=== PATIENT | female | born 1970 | race Two or more races ===

== ENCOUNTER 2023-03-12 14:06 | Emergency (ER) | payer BC, SELFPAY ==
[2023-03-12 14:16] VITALS: BP 140/78; PULSE 76; RESP 18; TEMP 36.7; O2SAT 99; BMI 36.8
--- NOTE | 2023-03-12 14:30 | ED.ABDPAIN1 ---
HPI - Abdominal Pain General Chief Complaint: Abdominal Pain Stated Complaint: FLANK PAIN Time Seen by Provider: 03/12/23 14:09 History of Present Illness HPI narrative: patient is a 52-year-old female who presents to the emergency department for pain in the right flank for the last three days. She states one year ago she had surgery on her left kidney was told at that time that she had a kidney stone in her right kidney. She states she was told that she should follow up for surgery to remove the kidney stone but she never did. She reports pain to the right flank radiating into the right abdomen for three days associated with nausea and vomiting. She denies fevers. She states she had blood in her urine at the beginning of the course of her illness. She denies any dysuria. No medications taken prior to arrival. Patient is Ugandan-speaking and history and physical were obtained with use of [place]an electrocardiographic technician. Related Data Previous Rx's Medication Instructions Recorded cephalexin 500 mg capsule 500 mg PO Q8H 7 days #21 caps 03/12/23 ketorolac 10 mg tablet 10 mg PO TID PRN pain #10 tabs 03/12/23 ondansetron 4 mg disintegrating 4 mg PO Q6H PRN nausea and 03/12/23 tablet vomiting #12 tabs oxycodone-acetaminophen 5 mg-325 1 tab PO Q6H PRN pain #15 tabs 03/12/23 mg tablet (Percocet) tamsulosin 0.4 mg capsule (Flomax) 0.4 mg PO DAILY #7 caps 03/12/23 Allergies Allergy/AdvReac Type Severity Reaction Status Date / Time No Known Drug Allergies Allergy Verified 03/12/23 14:41 Review of Systems ROS Constitutional Denies: fever or chills Ears, nose, mouth, and throat Denies: throat pain Cardiovascular Denies: chest pain Respiratory Denies: shortness of breath or cough Gastrointestinal Reports: abdominal pain, nausea and vomiting Genitourinary Reports: blood in urine Musculoskeletal Reports: back pain Integumentary/Breast Denies: rash Neurological Denies: headache PFSH PFSH Social History Smoking status: Never smoker Exam Narrative Exam Narrative: Gen.: Awake, alert, in no distress Head: Normocephalic, atraumatic ENT: Moist mucous membranes Respiratory: No respiratory distress Gastrointestinal: Abdomen is soft, nondistended and nontender to palpation Back: no rashes or color change noted of the right flank, no CVA tenderness Extremities: Moves extremities equally Psych: Normal mood and affect Neuro: No focal neuro deficit Skin: Warm, dry, intact Constitutional Vital Signs, click to edit/add: Last Vital Signs Temp 98.0 F 03/12/23 14:16 Pulse 76 03/12/23 14:16 Resp 18 03/12/23 14:16 BP 140/78 03/12/23 14:16 Pulse Ox 99 03/12/23 14:16 O2 Del Method Room Air 03/12/23 14:16 Course Vital Signs Vital signs: Vital Signs Temperature 98.0 F 03/12/23 14:16 Pulse Rate 76 03/12/23 14:16 Respiratory Rate 18 03/12/23 14:16 Blood Pressure 140/78 03/12/23 14:16 Pulse Oximetry 99 03/12/23 14:16 Oxygen Delivery Method Room Air 03/12/23 14:16 Temperature 98.0 F 03/12/23 14:16 Pulse Rate 76 03/12/23 14:16 Respiratory Rate 18 03/12/23 14:16 Blood Pressure 140/78 03/12/23 14:16 Pulse Oximetry 99 03/12/23 14:16 Oxygen Delivery Method Room Air 03/12/23 14:16 MDM - Abdominal Pain MDM Narrative Medical decision making narrative: patient treated with IV fluids, Toradol, Zofran, Dilaudid with improvement. She was given additional morphine for pain control. Lab studies show normal white blood cell count, normal lactic acid and normal creatinine. Patient has a nitrite positive urinary tract infection which was treated with IV Rocephin in the Emergency Room. CT of the abdomen and pelvis without contrast shows the patient has a 7 mm stone at the right UPJ with hydronephrosis as well as a left renal pelvis stone. I discussed the case with Dr. Ruiz for urology ([id number]) who recommended outpatient management, he will see the patient in the [place] office tomorrow for further evaluation and treatment. Patient will be discharged home on Percocet, Flomax, Zofran, Toradol, Keflex. Return to the emergency department if symptoms change or worsen. Follow-up with urology tomorrow. Medical Records Attestation: I reviewed the patient's medical records. Lab Data Attestation: I reviewed the patient's lab results. Labs: Lab Results 03/12/23 03/12/23 Range/Units 14:25 14:43 WBC 7.8 (4.0-11.0) 10^3/uL RBC 4.77 (4.20-5.40) 10^6/uL Hgb 12.8 (12.0-16.0) g/dL Hct 39.7 (36.0-48.0) % MCV 83.2 (81.0-99.0) fL MCH 26.8 (26.7-34.0) pg MCHC 32.2 (29.9-35.2) g/dL RDW 14.1 (11.0-15.0) % Plt Count 354 (150-450) 10^3/uL MPV 9.2 L (9.5-13.5) fL Neut % (Auto) 76.4 H (43.0-75.0) % Lymph % (Auto) 15.0 L (20.5-60.0) % [place] % (Auto) 5.7 (1.7-12.0) % Eos % (Auto) 2.2 (0.9-7.0) % Baso % (Auto) 0.4 (0.2-2.0) % Neut # (Auto) 5.9 (1.4-6.5) 10^3/uL Lymph # (Auto) 1.2 (1.2-3.8) 10^3/uL [place] # (Auto) 0.4 (0.3-0.8) 10^3/uL Eos # (Auto) 0.2 (0.0-0.7) 10^3/uL Baso # (Auto) 0.0 (0.0-0.1) 10^3/uL Abs Immat Gran (auto) 0.02 (0.00-0.03) 10^3/uL Imm/Tot Granulo (auto) 0.3 (0.0-0.5) % Sodium 139 (136-145) mmol/L Potassium 3.6 (3.5-5.1) mmol/L Chloride 107 (98-107) mmol/L Carbon Dioxide 26.7 (21.0-32.0) mmol/L Anion Gap 8.9 BUN 12.0 (7.0-18.0) mg/dL Creatinine 0.78 (0.55-1.02) mg/dL Est GFR ( Amer) >60 (>=60) Est GFR (Non-Af Amer) >60 (>=60) BUN/Creatinine Ratio 15.4 Glucose 109 H (74-106) mg/dL Lactate 1.1 (0.4-2.0) mmol/L Calcium 10.8 H (8.5-10.1) mg/dL Total Bilirubin 0.3 (0.2-1.0) mg/dL AST 19 (15-37) U/L ALT 28 (14-59) U/L Alkaline Phosphatase 161 H (46-116) U/L Total Protein 7.8 (6.4-8.2) g/dL Albumin 4.0 (3.4-5.0) g/dL Globulin 3.8 g/dL Albumin/Globulin Ratio 1.1 Urine Color Lt. yellow (YELLOW) Urine Clarity Clear (CLEAR) Urine pH 7.0 (5.0-9.0) Ur Specific [place] 1.020 (1.005-1.025) Urine Protein 30 A (NEG/TRACE) mg/dL Urine Glucose (UA) Negative (NEGATIVE) mg/dL Urine Ketones Negative (NEGATIVE) mg/dL Urine Occult Blood Large A (NEGATIVE) Urine Nitrite Positive A (NEGATIVE) Urine Bilirubin Negative (NEGATIVE) Urine Urobilinogen 0.2 (0.2-1.0) EU/dL Ur Leukocyte Esterase Large A (NEGATIVE) Urine RBC 10-20 A (0-2) #/HPF Urine WBC 20-50 A (NONE SEEN) #/HPF Ur Squamous Epith Cells Moderate A (NONE/RARE) #/LPF Urine Crystals Not Reportable Urine Bacteria Large A (NONE SEEN) #/HPF Urine Casts Not Reportable Urine Mucus None seen (NONE SEEN) Ur Culture Indicated? Yes Imaging Data CT scan - abdomen: Attestation: I have reviewed the pertinent imaging results. Radiologist's impression: Procedure: CT abdomen pelvis wo con EXAM: CT abdomen pelvis wo con; [id number] REASON FOR EXAM: Kidney stone TECHNIQUE: Helical CT images of the abdomen and pelvis were obtained without IV contrast. Multiplanar reformats were generated at the scanner. Dose reduction technique used: Automated exposure control and/or adjustment of the mA and/or kV according to patient size and/or use of iterative reconstruction technique. COMPARISON: CT abdomen/pelvis 09/27/2011. FINDINGS: Note: Compared with a contrast-enhanced CT exam, noncontrast images are relatively insensitive for detection of solid organ and vascular abnormalities. Visualized Chest: No pleural effusion or any significant pulmonary findings. Abdomen: Liver: -Cyst along the lateral periphery of the left lobe liver measures 7.8 x 6 cm (series 3 image 28), previously 3.4 x 2.4 cm in 2012. There is a small focal outpouching in the wall of the cyst into the hepatic parenchyma which measures 12 mm. Gallbladder: No calcified gallstones. No acute inflammatory changes. Bile Ducts: No significant biliary ductal dilatation. Pancreas: No ductal dilatation or inflammatory changes. Spleen: No splenomegaly. Adrenals: No nodules. Kidneys: -Obstructing stone in the right ureteropelvic junction measuring 7 x 7 mm (series 3 image 70) results in mild right-sided hydronephrosis. -Large renal pelvis stone in the left kidney measuring 2.4 x 1.9 x 1.2 cm, moderately increased in size compared with 2012. There is mild/moderate left-sided hydronephrosis as well as moderate parenchymal atrophy of the lower pole of the left kidney, worse. -Small parenchymal calcification in the lateral aspect of the lower pole of the left kidney. -Additional nonobstructing 2-3 mm stone in the right kidney. Vascular: No aortic aneurysm. Lymph Nodes: No adenopathy. Abdominal Wall: No hernia or mass. Pelvis: No mass or adenopathy. Bowel/Peritoneal Cavity/Mesentery: -No bowel obstruction or significant ileus. -No acute inflammatory changes. -No free air or free fluid. Musculoskeletal: No acute fracture or suspicious osseous lesion. Bilateral pars defects at L5. No significant spondylolisthesis. IMPRESSION: 1. Obstructing 7 mm stone in the right ureteropelvic junction resulting in mild right-sided hydronephrosis. 2. Large obstructing left renal pelvis stone measuring up to 24 mm and resulting in mild/moderate hydronephrosis of the upper pole of the left kidney. 3. Additional small nonobstructing stone in the right kidney. 4. Enlarging liver cyst with small focal outpouching which now measures up to 7.8 cm (previously 3.4 cm). This could represent a benign enlarging liver cyst, however, a hydatid cyst could have a similar appearance. Consider nonemergent MRI of the liver with and without contrast for further evaluation. Electronically authenticated by: NILSA DE GUZMAN Date: 03/12/2023 15:44 Discharge Plan Discharge Chief Complaint: Abdominal Pain Clinical Impression: Kidney stone Patient Disposition: Home, Self-Care Time of Disposition Decision: 16:34 Condition: Good Prescriptions / Home Meds: New cephalexin 500 mg capsule 500 mg PO Q8H 7 Days Qty: 21 0RF tamsulosin [Flomax] 0.4 mg capsule 0.4 mg PO DAILY Qty: 7 0RF ketorolac 10 mg tablet 10 mg PO TID PRN (Reason: pain) Qty: 10 0RF oxycodone-acetaminophen [Percocet] 5-325 mg tablet 1 tab PO Q6H PRN (Reason: pain) Qty: 15 0RF Rx Instructions: DX: N20.0 ondansetron 4 mg tablet,disintegrating 4 mg PO Q6H PRN (Reason: nausea and vomiting) Qty: 12 0RF Print Language: Ugandan Instructions: Kidney Stones (ED) Additional Instructions: Call Dr. Ruiz office tomorrow morning for appointment: [phone] Stand Alone Forms: Portal Instructions Referrals: Physician,Non-Staff, MD [Primary Care Provider] - 1 week
[2023-03-12] MEDS: HYDROMORPHONE HCL 1 MG/ML CARTRIDGE 0.5 MG IVP (14:47)
[2023-03-12] MEDS: ONDANSETRON PF 4 MG/2 ML VIAL IV (14:47)
[2023-03-12] MEDS: 0.9 % SODIUM CHLORIDE 1,000 ML 999 ML IV (14:48)
[2023-03-12 14:53] LABS: Basophils Percent Auto 0.4 % (0.2-2.0); Eosinophils Absolute Auto 0.2 10^3/uL (0.0-0.7); Eosinophils Percent Auto 2.2 % (0.9-7.0); Hematocrit 39.7 % (36.0-48.0); Hemoglobin 12.8 g/dL (12.0-16.0); Immature Granulocytes Abs Auto 0.02 10^3/uL (0.00-0.03); Immature Granulocytes Pct Auto 0.3 % (0.0-0.5); Lymphocytes Absolute Auto 1.2 10^3/uL (1.2-3.8); Mean Corpuscular HGB Conc 32.2 g/dL (29.9-35.2); Mean Corpuscular Hemoglobin 26.8 pg (26.7-34.0); Mean Corpuscular Volume 83.2 fL (81.0-99.0); Mean Platelet Volume 9.2 fL (9.5-13.5); Monocytes Absolute Auto 0.4 10^3/uL (0.3-0.8); Monocytes Percent Auto 5.7 % (1.7-12.0); Neutrophils Absolute Auto 5.9 10^3/uL (1.4-6.5); Neutrophils Percent Auto 76.4 % (43.0-75.0); Platelet Count 354 10^3/uL (150-450); Red Blood Count 4.77 10^6/uL (4.20-5.40); Red Cell Distribution Width 14.1 % (11.0-15.0); White Blood Count 7.8 10^3/uL (4.0-11.0)
[2023-03-12 14:54] LABS: Bilirubin Urine NEGATIVE (NEGATIVE); Blood Urine LARGE (NEGATIVE); Clarity Urine CLEAR (CLEAR); Color Urine LT. YELLOW (YELLOW); Glucose Urine UA NEGATIVE (NEGATIVE); Ketones Urine NEGATIVE (NEGATIVE); Leukocyte Esterase Urine LARGE (NEGATIVE); Nitrite Urine POSITIVE (NEGATIVE); Protein Urine 30 mg/dL (NEG/TRACE); Urobilinogen Urine 0.2 EU/dL (0.2-1.0)
[2023-03-12] MEDS: KETOROLAC TROMETHAMINE 30 MG/ML VIAL IVP (14:54)
[2023-03-12 14:55] LABS: Urine Microscopic Indicated YES
[2023-03-12 15:06] LABS: Alanine Aminotransferase 28 U/L (14-59); Albumin Globulin Ratio 1.1; Alkaline Phosphatase 161 U/L (46-116); Anion Gap 8.9; Aspartate Amino Transferase 19 U/L (15-37); BUN Creatinine Ratio 15.4; Bilirubin Total 0.3 mg/dL (0.2-1.0); Calcium 10.8 mg/dL (8.5-10.1); Carbon Dioxide 26.7 mmol/L (21.0-32.0); Chloride 107 mmol/L (98-107); Estimated GFR (African America >60 (>=60); Estimated GFR (Non-African Ame >60 (>=60); Globulin 3.8 g/dL; Glucose 109 mg/dL (74-106); Potassium 3.6 mmol/L (3.5-5.1); Sodium 139 mmol/L (136-145); Total Protein 7.8 g/dL (6.4-8.2)
[2023-03-12 15:07] LABS: WBC Urine 20-50 #/HPF (NONE SEEN)
[2023-03-12 15:08] LABS: Bacteria Urine LARGE #/HPF (NONE SEEN); Mucus Urine NONE SEEN (NONE SEEN); Squamous Epithelial Cell Urine MODERATE #/LPF (NONE/RARE)
[2023-03-12 15:08] LABS: Lactate/Lactic Acid 1.1 mmol/L (0.4-2.0)
[2023-03-12 15:09] LABS: Urine Culture Indicated YES
[2023-03-12] MEDS: CEFTRIAXONE 1,000 MG in 0.9 % SODIUM CHLORIDE 50 ML 100 MG IV (15:58)
[2023-03-12] MEDS: MORPHINE SULFATE 4 MG/ML VIAL IV (16:39)
--- NOTE | 2023-03-15 12:24 | PC.NURSE ---
03/15/23 1224 pt called by Daquan MOTTA and Dr David stanford for cipro sent to [facility] in [place] due to urine c+s from 03/12/23. Klaudia Phillips RN
== END 2023-03-12 17:09 | disposition home or self-care (01) ==
PROVIDERS: Physician Assistant; Emergency Provider Emergency Medicine
DX: N13.6 Pyonephrosis (principal)
CPT/HCPCS: 36415; 74176; 80053; 81001; 81003; 83605; 85025; 87086; 87150; 87186; 96365; 96375; 99285; J1170

== ENCOUNTER 2023-03-14 06:18 | Day surgery (SDC) | payer BC, SELFPAY ==
[2023-03-14] VITALS (13 sets, daily range): BP systolic 104–163; BP diastolic 45–83; PULSE 58–77; RESP 16–21; TEMP 36–36.6; O2SAT 94–98; BMI 37.0
--- NOTE | 2023-03-14 06:22 | ECG_ITS ---
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
[2023-03-14 06:39] LABS: HCG Qualitative NEGATIVE (NEGATIVE)
[2023-03-14] MEDS: LACTATED RINGER'S SOLUTION 1,000 ML 50 ML IV (07:10)
[2023-03-14] MEDS: CEFAZOLIN SODIUM/DEXTROSE,ISO 1 GM/50 ML IV.SOLN IV (07:49)
[2023-03-14] MEDS: IOHEXOL 240 MG/ML - 50 ML VIAL INJ (08:22)
--- NOTE | 2023-03-14 08:35 | PM.URSON ---
Urology Surgery Operative Note Operative Note Procedure Date: 03/14/23 Time Out Performed: yes Pre-op Diagnosis: right ureteral calculus and left renal pelvis calculus Post-op Diagnosis: same as pre-op Procedures performed: #1. Cystoscopy. #2. Right stent placement 6 [place] variable length. #3. Left retrograde pyelogram. #4. Left stent placement 6 [place] variable length. Anesthesia: General-LMA Primary Surgeon: Trav Ruiz Complications: non- Estimated blood loss (mL): 0 Findings: obstructing right ureteral calculus and obstructing left renal pelvis calculus Specimens: none Indications for Procedures: this lady has a 7 mm proximal right ureteral calculus that spent causing pain. She presented to the emergency room and then was seen in our office yesterday. On her CAT scan she also has a 2.4 cm left renal calculus within the renal pelvis. She has had mild pain on the left side intermittently for a few months. She now presents for cystoscopy and placement of bilateral stents. She has signed an informed consent for these procedures after the risks were explained. Detailed description of Procedure: The patient was brought to the operating room and placed on the operating room table in the supine position. SCDs were placed on the lower extremities and turned on and functioning during the entire case. Timeout was done by all parties in the room. We all agreed upon the patient's identification and the planned procedures for this patient. Genn. anesthesia was then administered. The patient was then repositioned into the modified dorsal lithotomy position. All pressure points were satisfactorily padded. Genitalia were sterilely prepped and draped in usual fashion.at this time I then passed a 22 [place] Olympus cystoscope per urethra and into the bladder. Careful panendoscopy revealed no evidence of any tumors or stones. 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 While using fluoroscopy I could clearly see her righht proximal ureteral calculus and her left renal calculus. I then passed a Glidewire through the scope and cannulated the right ureter. I was able to get the wire up to the stone. Initially it buckled but then it passed beyond the stone into the renal pelvis. I then slid a 6 [place] variable length ureteral stent over the wire and up into the renal pelvis. The wire was removed and there were good curls in the kidney and in the bladder. Thee stone seemed to have popped up into the renal pelvis. I theen passed a 8 [place] cone-tipped catheter and cannulated the left ureteral orifice. I then injected contrast in a retrograde manner. The stone and created a filling defect and contrast went proximal to it and filled in the kidney distal to it. I then passed a Glidewire through the scope and was able to get it up beyond the stone. I then slid a 6 [place] variable length ureteral stent over the wire and was able to get it up into the renal pelvis. The wire was removed and there were good curls in the kidney and in the bladder. We then had a high-pressure E flux of cloudy urine coming down into the bladder. Bladder was drained of its contents and the scope was then removed. She was then transferred [facility] bed and wheeled to PACU in stable condition.
== END 2023-03-14 09:40 | disposition home or self-care (01) ==
PROVIDERS: Visit Provider Urology
PROC: (CPT 52332; principal; 2023-03-14 08:10)
DX: N13.2 Hydronephrosis with renal and ureteral calculous obstruction (principal); Z87.442 Personal history of urinary calculi
CPT/HCPCS: 52332; 36415; 74420; 84703; 93005; C1874; J2704; Q9966

== ENCOUNTER 2023-03-28 12:22 | Outpatient (OUT) | payer BC, SELFPAY ==
[2023-03-28 13:49] LABS: INR 0.99; Partial Thromboplastin Time 25.4 sec (22.3-36.2); Prothrombin Time 10.5 sec (9.0-11.6)
== END 2023-03-28 12:23 | disposition home or self-care (01) ==
LOC: PST 12:23
PROVIDERS: Visit Provider Urology
DX: Z01.812 Encounter for preprocedural laboratory examination (principal); N20.0 Calculus of kidney
CPT/HCPCS: 36415; 85610; 85730

== ENCOUNTER 2023-03-28 13:20 | Outpatient (OUT) | payer BC, SELFPAY | END 2023-03-28 13:21 | disposition home or self-care (01) | LOC: PST 13:20 | PROVIDERS: Visit Provider Urology | DX: Z01.818 Encounter for other preprocedural examination (principal); N20.0 Calculus of kidney ==

== ENCOUNTER 2023-04-04 08:12 | Day surgery (SDC) | payer BC, SELFPAY ==
[2023-03-28 13:29] VITALS: BP 125/79; PULSE 76; RESP 20; TEMP 36.5; O2SAT 100; BMI 37.3
[2023-04-04] VITALS (12 sets, daily range): BP systolic 116–141; BP diastolic 68–84; PULSE 55–93; RESP 15–24; TEMP 36.3; O2SAT 92–98; BMI 37.3
--- NOTE | 2023-04-04 08:00 | XR_ITS ---
The [address] [address] Patient Name: NATIVIDAD WILKINS MRN: [id number] date: 1970 Sex: F Assigned Patient Location: [facility] Current Patient Location: [facility] Accession/Order Number: [id number] Exam Date: 04/04/2023 08:27 Report Date: 04/04/2023 08:58 At the request of: LYNN CASTILLO Procedure: XR abdomen 1V EXAMINATION: XR abdomen 1V HISTORY: kidney stones COMPARISON: CT abdomen pelvis 03/12/2023 FINDINGS: KIDNEY/URETER - RIGHT: 7 mm stone within inferior pole of kidney. Right ureteral stent appearing in good position. KIDNEY/URETER - LEFT: 29 x 23 m large calcification within superior pole. Left ureteral stent appearing in good position. PELVIS: No appreciable ureteral stones. BOWEL: No abnormal dilation or deviation. BONES: No acute abnormality. OTHER: Negative. No abnormal gaseous collections. XR/XR abdomen 1V IMPRESSION: 1. Bilateral nephrolithiasis. Previously seen right ureteral stone has been pushed back into the kidney. Electronically authenticated by: GUCCI DICKEY Date: 04/04/2023 08:58
[2023-04-04] MEDS: LACTATED RINGER'S SOLUTION 1,000 ML 50 ML IV ×2 (08:56→11:56)
[2023-04-04] MEDS: CEFAZOLIN SODIUM/DEXTROSE,ISO 1 GM/50 ML IV.SOLN IV (09:42)
--- NOTE | 2023-04-04 10:25 | PM.URSON ---
Urology Surgery Operative Note Operative Note Procedure Date: 04/04/23 Time Out Performed: yes Pre-op Diagnosis: bilateral nephrolithiasis; status post placement of bilateral stents Post-op Diagnosis: same as pre-op Procedures performed: #1. Right ESWL. #2. Cystoscopy. #3. Right stent removal. Anesthesia: General-LMA Primary Surgeon: Trav Ruiz Complications: none Estimated blood loss (mL): 0 Findings: right 7 mm calculus. Specimens: none Indications for Procedures: this lady had a right 7 mm UPJ stone in the left 2.4 cm renal pelvis stone. She had bilateral stents placed a few weeks ago. Her right ureteral stone now is in the right kidney. He now presents for right ESWL and possible cystoscopy and right stent removal. She has signed an informed consent for these procedures after risks were explained. Some of these risks include bleeding, perinephric hematoma, anesthesia and infection to name a few. Detailed description of Procedure: The patient was brought to the Operating Room and placed on Siemens electromagnetic lithotripsy treatment table in the supine position. SCDs were placed on their lower extremities and turned on and functioning during the entire case. Timeout was done by all parties in the room. We all agreed upon the patient's identification and the planned procedures for this patient. General Anesthesia was then administered via LMA. Treatment head was then brought to the patient's correct side. While using flourscopy the stone was identified and lined up into the crosshairs. We then began applying shocks.started at power level II.0 and increased to a maximum of power level III.5. Intermittent fluoroscopy showed that the stone quickly fragmented. The applied a total of 1000 shocks and the stone was entirely fragmented. This portion of the procedure was then terminated. She was then placed in the frog-leg position. Benny genitalia and perineum were sterilely prepped and draped in the usual fashion. I then passed a flexible cystoscope per urethra and into the bladder. I then passed a flexible grasping forceps and grasped the end of the stent. The scope and stent were then removed without difficulty. She was then transferred to a [facility] bed and wheeled to PACU in stable condition.
[2023-04-04 10:47] LABS: HCG Qualitative NEGATIVE (NEGATIVE)
== END 2023-04-04 13:06 | disposition home or self-care (01) ==
PROVIDERS: Visit Provider Urology
PROC: (CPT 50590; principal; 2023-04-04 09:20)
DX: N20.0 Calculus of kidney (principal); K76.9 Liver disease, unspecified
CPT/HCPCS: 50590; 52310; 36415; 74018; 84703; J2704

== ENCOUNTER 2024-10-10 13:25 | Observation (INO) | payer SELFPAY ==
[2024-10-10] VITALS (24 sets, daily range): BP systolic 104–147; BP diastolic 54–79; PULSE 87–105; TEMP 36.9–37.3; O2SAT 84–100; BMI 38.4; BMI 38.5
--- NOTE | 2024-10-10 14:21 | ED.GENADUL1 ---
HPI HPI - General Adult General Chief complaint: Abdominal Pain Stated complaint: Upper Respiratory Infection Time Seen by Provider: 10/10/24 14:10 Source: patient and family Mode of arrival: walk-in Limitations: language barrier History of Present Illness HPI narrative: Patient has felt ill for the last 3 days with back pain, nausea, dysuria and urinary urgency and frequency. She has a history of recurrent kidney stones. She is status post parathyroidectomy. She has had a cough since July. She has had multiple urologic procedures related to her kidney stones in the past. Related Data Home Medications ?Medication ?Instructions ?Recorded ?Confirmed No Known Home Medications 10/10/24 10/10/24 Allergies Allergy/AdvReac Type Severity Reaction Status Date / Time No Known Drug Allergies Allergy Verified 10/10/24 14:00 Opioid HPI Opioid Management Most Recent Opioid Data: Last Pain Scale 10 10/10/24 16:05 10/10/24 Last MAR Pain Assessment 10/10/24 16:05 PFSH PFSH Medical History (Updated 10/10/24 @ 17:54 by Arpan Watts MD) History of blood transfusion ?Z92.89 - Personal history of other medical treatment (ICD-10) Anemia ?D64.9 - Anemia, unspecified (ICD-10) Pneumonia ?J18.9 - Pneumonia, unspecified organism (ICD-10) GERD (gastroesophageal reflux disease) ?K21.9 - Gastro-esophageal reflux disease without esophagitis (ICD-10) History of liver disease ?Z87.19 - Personal history of other diseases of the digestive system (ICD-10) History of headache ?Z87.898 - Personal history of other specified conditions (ICD-10) History of kidney stones ?Z87.442 - Personal history of urinary calculi (ICD-10) Surgical History (Updated 03/28/23 @ 13:30 by Vandana Davidson NP) History of open reduction and internal fixation (ORIF) procedure ?Z98.890 - Other specified postprocedural states (ICD-10) S/P cystoscopy ?Z98.890 - Other specified postprocedural states (ICD-10) S/P ureteral stent placement ?Z96.0 - Presence of urogenital implants (ICD-10) H/O cystoscopy ?Z98.890 - Other specified postprocedural states (ICD-10) History of breast surgery ?Z98.890 - Other specified postprocedural states (ICD-10) History of hemorrhoidectomy ?Z98.890 - Other specified postprocedural states (ICD-10) History of tubal ligation ?Z98.51 - Tubal ligation status (ICD-10) History of colonoscopy ?Z98.890 - Other specified postprocedural states (ICD-10) Family History (Updated 03/14/23 @ 06:45 by Jessica Eubanks RN) Other Family history of diabetes mellitus Family history of hypertension Social History (Updated 03/14/23 @ 06:45 by Jessica Eubanks, RUTH) Within the past year, how often did you have a drink containing alcohol: never Score interpretation: A score less than 3 is consistent with normal alcohol consumption. 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 She is afebrile. She is mildly tachycardic with a heart rate of 105. The blood pressure is 143/54. HEENT exam is normal to inspection. Neck is supple. Lung sounds are clear to auscultation bilaterally. Heart has regular rate and rhythm. There is bilateral CVA tenderness. Abdomen soft and benign with no organomegaly or fluid wave. She does not have unilateral leg swelling or calf tenderness. There is no facial asymmetry and her mentation is intact. She moves all extremities actively. Constitutional Vital Signs, click to edit/add: Last Vital Signs Temp 99.1 F 10/10/24 14:01 Pulse 105 H 10/10/24 14:01 Resp 16 10/10/24 14:01 BP 143/54 H 10/10/24 14:01 Pulse Ox 98 10/10/24 14:01 O2 Del Method Room Air 10/10/24 14:01 Course Vital Signs Vital signs: Vital Signs Temperature 99.1 F 10/10/24 14:01 Pulse Rate 105 H 10/10/24 14:01 Respiratory Rate 16 10/10/24 14:01 Blood Pressure 143/54 H 10/10/24 14:01 Pulse Oximetry 98 10/10/24 14:01 Oxygen Delivery Method Room Air 10/10/24 14:01 Temperature 99.1 F 10/10/24 14:01 Pulse Rate 105 H 10/10/24 14:01 Respiratory Rate 16 10/10/24 14:01 Blood Pressure 143/54 H 10/10/24 14:01 Pulse Oximetry 98 10/10/24 14:01 Oxygen Delivery Method Room Air 10/10/24 14:01 Medical Decision Making MDM Narrative Medical decision making narrative: Due to language barrier, ms access database developer was used for the encounter. Patient has a normal white count. Urinalysis is consistent with infection. CT scan of the abdomen and pelvis showed left kidney hydronephrosis related to several calculi in the left renal pelvis the largest measuring 21 mm. There were 2 stones in the right kidney the largest was located in the lower pole measuring 7 mm and there was no evidence of hydronephrosis on the right side. The plan is to transfer the patient to [place] which is her choice. I contacted Dr. Luis on-call for urology and she has been accepted by the hospitalist service at [facility]. She has been treated with a liter of IV saline and Rocephin 1 g IV in the ED. Lab Data Labs: Lab Results 10/10/24 10/10/24 10/10/24 Range/Units 14:22 14:30 15:35 WBC 9.7 (4.0-11.0) 10^3/uL RBC 4.72 (4.20-5.40) 10^6/uL Hgb 12.6 (12.0-16.0) g/dL Hct 39.9 (36.0-48.0) % MCV 84.5 (81.0-99.0) fL MCH 26.7 (26.7-34.0) pg MCHC 31.6 (29.9-35.2) g/dL RDW 15.2 H (11.0-15.0) % Plt Count 312 (150-450) 10^3/uL MPV 9.0 L (9.5-13.5) fL Neut % (Auto) 72.7 (43.0-75.0) % Lymph % (Auto) 16.1 L (20.5-60.0) % [place]y % (Auto) 9.1 (1.7-12.0) % Eos % (Auto) 1.3 (0.9-7.0) % Baso % (Auto) 0.5 (0.2-2.0) % Neut # (Auto) 7.0 H (1.4-6.5) 10^3/uL Lymph # (Auto) 1.6 (1.2-3.8) 10^3/uL [place]y # (Auto) 0.9 H (0.3-0.8) 10^3/uL Eos # (Auto) 0.1 (0.0-0.7) 10^3/uL Baso # (Auto) 0.1 (0.0-0.1) 10^3/uL Abs Immat Gran (auto) 0.03 (0.00-0.03) 10^3/uL Imm/Tot Granulo (auto) 0.3 (0.0-0.5) % Sodium 139 (136-145) mmol/L Potassium 3.4 L (3.5-5.1) mmol/L Chloride 98 (98-107) mmol/L Carbon Dioxide 26.8 (21.0-32.0) mmol/L Anion Gap 17.6 BUN 18.0 (7.0-18.0) mg/dL Creatinine 0.83 (0.55-1.02) mg/dL Est GFR ( Amer) >60 (>=60 mL/min/1.73m^2) Est GFR (Non-Af Amer) >60 (>=60 mL/min/1.73m^2) BUN/Creatinine Ratio 21.7 Glucose 122 H (74-106) mg/dL Calcium 9.1 (8.5-10.1) mg/dL Total Bilirubin 0.7 (0.2-1.0) mg/dL AST 15 (15-37) U/L ALT 31 (14-59) U/L Alkaline Phosphatase 131 H (46-116) U/L Total Protein 8.2 (6.4-8.2) g/dL Albumin 3.7 (3.4-5.0) g/dL Globulin 4.5 g/dL Albumin/Globulin Ratio 0.8 Lipase 40.0 (16.0-77.0) U/L TSH & Free T4 Interp 3.677 (0.358-3.740) uIU/mL Urine Color Lt. yellow (YELLOW) Urine Clarity Sl cloudy (CLEAR) Urine pH 6.0 (5.0-9.0) Ur Specific [place] 1.025 (1.005-1.025) Urine Protein 100 A (NEG/TRACE) mg/dL Urine Glucose (UA) Negative (NEGATIVE) mg/dL Urine Ketones Negative (NEGATIVE) mg/dL Urine Occult Blood Large A (NEGATIVE) Urine Nitrite Positive A (NEGATIVE) Urine Bilirubin Negative (NEGATIVE) Urine Urobilinogen 0.2 (0.2-1.0) EU/dL Ur Leukocyte Esterase Small A (NEGATIVE) Urine RBC 50-75 A (0-2) #/HPF Urine WBC 5-10 A (NONE SEEN) #/HPF Ur Squamous Epith Cells Few A (NONE/RARE) #/LPF Urine Crystals None seen (None Seen) #/HPF Urine Bacteria Moderate A (NONE SEEN) #/HPF Urine Casts None seen (NONE SEEN) #/LPF Urine Mucus None seen (NONE SEEN) Ur Culture Indicated[place] [place] Influenza Type A Ag Negative Influenza Type B Ag Negative Discharge Plan Discharge Chief Complaint: Abdominal Pain Clinical Impression: UTI (urinary tract infection), Kidney stone, Hydronephrosis of left kidney Patient Disposition: [facility] Time of Disposition Decision: 17:49 Discharge location: [facility] Condition: Fair Mode of Transportation: EMS
[2024-10-10] MEDS: 0.9 % SODIUM CHLORIDE 1,000 ML 1000 ML IV (14:37)
[2024-10-10 14:58] LABS: Bilirubin Urine NEGATIVE (NEGATIVE); Blood Urine LARGE (NEGATIVE); Clarity Urine SL CLOUDY (CLEAR); Color Urine LT. YELLOW (YELLOW); Glucose Urine UA NEGATIVE (NEGATIVE); Ketones Urine NEGATIVE (NEGATIVE); Leukocyte Esterase Urine SMALL (NEGATIVE); Nitrite Urine POSITIVE (NEGATIVE); Protein Urine 100 mg/dL (NEG/TRACE); Specific Gravity Urine 1.025 (1.005-1.025); Urobilinogen Urine 0.2 EU/dL (0.2-1.0)
[2024-10-10 14:58] LABS: Basophils Absolute Auto 0.1 10^3/uL (0.0-0.1); Basophils Percent Auto 0.5 % (0.2-2.0); Eosinophils Absolute Auto 0.1 10^3/uL (0.0-0.7); Eosinophils Percent Auto 1.3 % (0.9-7.0); Hematocrit 39.9 % (36.0-48.0); Hemoglobin 12.6 g/dL (12.0-16.0); Immature Granulocytes Abs Auto 0.03 10^3/uL (0.00-0.03); Immature Granulocytes Pct Auto 0.3 % (0.0-0.5); Lymphocytes Absolute Auto 1.6 10^3/uL (1.2-3.8); Lymphocytes Percent Auto 16.1 % (20.5-60.0); Mean Corpuscular HGB Conc 31.6 g/dL (29.9-35.2); Mean Corpuscular Hemoglobin 26.7 pg (26.7-34.0); Mean Corpuscular Volume 84.5 fL (81.0-99.0); Monocytes Absolute Auto 0.9 10^3/uL (0.3-0.8); Monocytes Percent Auto 9.1 % (1.7-12.0); Neutrophils Percent Auto 72.7 % (43.0-75.0); Platelet Count 312 10^3/uL (150-450); Red Blood Count 4.72 10^6/uL (4.20-5.40); Red Cell Distribution Width 15.2 % (11.0-15.0); White Blood Count 9.7 10^3/uL (4.0-11.0)
[2024-10-10 15:02] LABS: Urine Microscopic Indicated YES
[2024-10-10 15:08] LABS: Bacteria Urine MODERATE #/HPF (NONE SEEN); Cast Seen? NONE SEEN #/LPF (NONE SEEN); Crystals Seen? None Seen #/HPF (None Seen); Mucus Urine NONE SEEN (NONE SEEN); RBC Urine 50-75 #/HPF (0-2); Squamous Epithelial Cell Urine FEW #/LPF (NONE/RARE); Urine Culture Indicated YES-FRMC
[2024-10-10 15:15] LABS: Alanine Aminotransferase 31 U/L (14-59); Albumin Globulin Ratio 0.8; Albumin Level 3.7 g/dL (3.4-5.0); Alkaline Phosphatase 131 U/L (46-116); Anion Gap 17.6; Aspartate Amino Transferase 15 U/L (15-37); BUN Creatinine Ratio 21.7; Bilirubin Total 0.7 mg/dL (0.2-1.0); Calcium 9.1 mg/dL (8.5-10.1); Carbon Dioxide 26.8 mmol/L (21.0-32.0); Chloride 98 mmol/L (98-107); Estimated GFR (African America >60 (>=60 mL/min/1.73m^2); Estimated GFR (Non-African Ame >60 (>=60 mL/min/1.73m^2); Globulin 4.5 g/dL; Glucose 122 mg/dL (74-106); Potassium 3.4 mmol/L (3.5-5.1); Sodium 139 mmol/L (136-145); Total Protein 8.2 g/dL (6.4-8.2)
[2024-10-10 15:20] LABS: TSH W/ REFLEX FT4 3.677 uIU/mL (0.358-3.740)
[2024-10-10 16:03] LABS: Influenza Virus A Antigen Negative; Influenza Virus B Antigen Negative; Internal Control Within Normal Limits
[2024-10-10] MEDS: CEFTRIAXONE 1,000 MG in 0.9 % SODIUM CHLORIDE 50 ML 100 MG IV (16:05)
[2024-10-10] MEDS: KETOROLAC TROMETHAMINE 30 MG/ML VIAL 15 MG IVP (16:05)
[2024-10-10] MEDS: ACETAMINOPHEN 500 MG TABLET 1000 MG PO (16:05)
[2024-10-10] MEDS: HYDROCODONE/ACET 5-325 MG TABLET 2 TAB PO (22:34)
--- NOTE | 2024-10-10 23:35 | PC.NURSE ---
Patient has sveral large rash like areas to stomach and left thigh that goes around to buttocks. Patient states this started s a small pimple area on stomach and the more she itched it the larger it got. Photos taken and FOUNDRY WORKER notified.
[2024-10-11] MEDS: POTASSIUM CHLORIDE 10 MEQ ER TABLET 40 MEQ PO (01:38)
[2024-10-11 06:33] LABS: Hematocrit 36.3 % (36.0-48.0); Hemoglobin 11.5 g/dL (12.0-16.0); Mean Corpuscular HGB Conc 31.7 g/dL (29.9-35.2); Mean Corpuscular Hemoglobin 26.9 pg (26.7-34.0); Platelet Count 278 10^3/uL (150-450); Red Blood Count 4.27 10^6/uL (4.20-5.40); Red Cell Distribution Width 15.2 % (11.0-15.0); White Blood Count 8.6 10^3/uL (4.0-11.0)
[2024-10-11 06:56] LABS: Anion Gap 12.8; BUN Creatinine Ratio 28.1; Calcium 8.6 mg/dL (8.5-10.1); Chloride 102 mmol/L (98-107); Estimated GFR (African America >60 (>=60 mL/min/1.73m^2); Estimated GFR (Non-African Ame >60 (>=60 mL/min/1.73m^2); Glucose 113 mg/dL (74-106); Magnesium 2.1 mg/dL (1.8-2.4); Potassium 3.8 mmol/L (3.5-5.1); Sodium 136 mmol/L (136-145)
[2024-10-11 07:29] VITALS: BP 139/82; PULSE 83; TEMP 37.6; O2SAT 96
--- NOTE | 2024-10-11 09:37 | PC.NURSE ---
report called to Anne Leon
--- NOTE | 2024-10-11 12:05 | PM.HP ---
HPI H&P: HPI History of Present Illness Chief complaint: Left HYDRONEPHROSIS KIDNEY STONE Narrative: HPI and Hospital course: 54-year-old female with past medical history of recurrent kidney stone requiring intervention by urology presented to ED with nausea, flank pain and was found to have bilateral renal calculi along with right-sided hydronephrosis. Unfortunately, our facility does not have urology service available at this moment. Attempt was made to transfer her to [facility] in [place] and she was accepted as a patient. However due to bed unavailability, she was admitted overnight by night hospitalist. Patient was admitted for pain control, monitoring and started on IV antibiotics. I was unable to evaluate and assess her and she left for [facility] earlier today. Discharge diagnosis Bilateral renal stones Left-sided hydronephrosis Discharge status Stable for transfer Discharge disposition [facility] Opioid HPI Opioid Management Most Recent Pain and Opioid Data: Last Pain Scale 4 10/11/24 09:00 10/11/24 Last Pain Assessment 10/11/24 09:00 Last ED Pain Assessment 10/10/24 19:12 Last ORT Total Score 0 10/10/24 22:31 10/10/24 Last ORT Risk Category Low Risk 10/10/24 22:31 10/10/24 PFSH PFSH Medical History (Updated 10/10/24 @ 17:54 by Arpan Watts MD) History of blood transfusion ?Z92.89 - Personal history of other medical treatment (ICD-10) Anemia ?D64.9 - Anemia, unspecified (ICD-10) Pneumonia ?J18.9 - Pneumonia, unspecified organism (ICD-10) GERD (gastroesophageal reflux disease) ?K21.9 - Gastro-esophageal reflux disease without esophagitis (ICD-10) History of liver disease ?Z87.19 - Personal history of other diseases of the digestive system (ICD-10) History of headache ?Z87.898 - Personal history of other specified conditions (ICD-10) History of kidney stones ?Z87.442 - Personal history of urinary calculi (ICD-10) Surgical History (Updated 03/28/23 @ 13:30 by Vandana Davidson NP) History of open reduction and internal fixation (ORIF) procedure ?Z98.890 - Other specified postprocedural states (ICD-10) S/P cystoscopy ?Z98.890 - Other specified postprocedural states (ICD-10) S/P ureteral stent placement ?Z96.0 - Presence of urogenital implants (ICD-10) H/O cystoscopy ?Z98.890 - Other specified postprocedural states (ICD-10) History of breast surgery ?Z98.890 - Other specified postprocedural states (ICD-10) History of hemorrhoidectomy ?Z98.890 - Other specified postprocedural states (ICD-10) History of tubal ligation ?Z98.51 - Tubal ligation status (ICD-10) History of colonoscopy ?Z98.890 - Other specified postprocedural states (ICD-10) Family History (Updated 03/14/23 @ 06:45 by Jessica Eubanks RN) Other Family history of diabetes mellitus Family history of hypertension Social History (Updated 03/14/23 @ 06:45 by Jessica Eubanks RN) Within the past year, how often did you have a drink containing alcohol: never Score interpretation: A score less than 3 is consistent with normal alcohol consumption. 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 Known occupational exposures/hazards: No Highest level of school completed/degree received: 9th grade Little interest or pleasure in doing things: not at all Feeling down, depressed, or hopeless: not at all Gender Identity: female Meds Home Medications and Allergies Home Medications ?Medication ?Instructions ?Recorded ?Confirmed ?Type No Known Home Medications 10/10/24 10/10/24 History Allergies Allergy/AdvReac Type Severity Reaction Status Date / Time No Known Drug Allergies Allergy Verified 10/10/24 14:00 Exam Constitutional Vital Signs, click to edit/add: Last Vital Signs Temp 99.6 F 10/11/24 07:29 Pulse 83 10/11/24 07:29 Resp 20 10/11/24 07:29 BP 139/82 10/11/24 07:29 Pulse Ox 96 10/11/24 07:29 O2 Del Method Room Air 10/11/24 07:29 Results Labs Labs: Short CBC 10/10/24 10/11/24 Range/Units 14:30 06:07 WBC 9.7 8.6 (4.0-11.0) 10^3/uL Hgb 12.6 11.5 L (12.0-16.0) g/dL Hct 39.9 36.3 (36.0-48.0) % Plt Count 312 278 (150-450) 10^3/uL BMP 10/10/24 10/11/24 14:30 06:07 Sodium 139 136 Potassium 3.4 L 3.8 Chloride 98 102 Carbon Dioxide 26.8 25.0 BUN 18.0 18.0 Creatinine 0.83 0.64 Glucose 122 H 113 H Calcium 9.1 8.6 Liver Function 10/10/24 Range/Units 14:30 Total Bilirubin 0.7 (0.2-1.0) mg/dL AST 15 (15-37) U/L ALT 31 (14-59) U/L Alkaline Phosphatase 131 H (46-116) U/L Albumin 3.7 (3.4-5.0) g/dL Urine 10/10/24 Range/Units 14:22 Urine Color Lt. yellow (YELLOW) Urine Clarity Sl cloudy (CLEAR) Urine pH 6.0 (5.0-9.0) Ur Specific [place] 1.025 (1.005-1.025) Urine Protein 100 A (NEG/TRACE) mg/dL Urine Glucose (UA) Negative (NEGATIVE) mg/dL
--- NOTE | 2024-10-12 09:06 | SWNOTE1 ---
SW had consult for pt for financial concerns, lost job, but pt was transferred to higher level of care. SW was not able to see.
--- NOTE | 2024-10-14 15:06 | CM.NOTE ---
[facility] nurse, Radha-charge nurse, notified of positive urine culture for E. Coli. Radha reports they have the positive culture with sensitivity report as well.
== END 2024-10-11 09:05 | disposition short-term general hospital (02) ==
LOC: ER 17:54 → MS 20:33
PROVIDERS: Registered Nurse; Admitting Provider Internal Medicine; Emergency Provider Emergency Medicine; Visit Provider Internal Medicine
DX: N13.6 Pyonephrosis (principal); Z87.442 Personal history of urinary calculi; Z98.51 Tubal ligation status; B96.20 Unspecified Escherichia coli [E. coli] as the cause of diseases classified elsewhere
CPT/HCPCS: 36415; 74176; 80048; 80053; 81001; 83690; 83735; 84443; 85025; 85027; 87086; 87150; 87186; 87804; 96365; 96375; 99285; G0378; J0696; J1885